=== PATIENT | female | born 1940 | race Two or more races ===

== ENCOUNTER 2021-02-12 06:00 | Day surgery (SDC) | payer OTHER ==
[2021-02-12] MEDS ORDERED: MACROBID 100 M100 MG PO (12:02)
[2021-02-12] MEDS ORDERED: KETO10TA2 PO (12:04)
== END 2021-02-12 14:25 | disposition home or self-care (01) ==
LOC: CIR.AMB 06:00
PROVIDERS: ATTEND Obstetrics & Gynecology Gynecology
DX: N81.3 Complete uterovaginal prolapse (principal); Z20.822 Contact with and (suspected) exposure to COVID-19